=== PATIENT | female | born 1960 | race Caucasian/White ===

== ENCOUNTER → 2018-08-12 | Outpatient (CLI) | payer OTHER ==
[~2018-08-12] VITALS: Ht 157.5 cm; Wt 97.1 kg
[~2018-08-12] MED LIST: REGADENOSON 0.4 MG/5 ML SYR (LEXISCAN) IV ONE
[2018-08-12] MEDS: CATHETER FLUSH 10 ML SYR IV PRN ×2 (11:03→12:39)
[2018-08-12 12:37] VITALS: BP 137/81
--- NOTE | 2018-08-12 17:34 | STRESS TEST ---
DATE OF SERVICE: 08/12/2018 RESTING AND POST REGADENOSON TECHNETIUM-99M TETROFOSMIN SPECT CT IMAGING ORDERING PHYSICIAN: MART Vallejo PRIMARY PHYSICIAN: Dr. Wharton. CLINICAL DIAGNOSIS: Chest discomfort. Baseline images were carried out after injection of 10.96 mCi of technetium-99m Tetrofosmin. This was followed by 0.4 mg regadenoson and 28.4 mCi technetium-99m Tetrofosmin for stress imaging. The electrocardiogram showed sinus rhythm at baseline. It did not change significantly with the regadenoson infusion. She had some generalized discomfort and chest discomfort following regadenoson infusion, which resolved in a few minutes. The electrocardiogram did not change. Review of images at rest and following stress does not indicate any distinct perfusion defects consistent with significant myocardial ischemia or infarction. Some degree of breast attenuation is seen both at rest and following regadenoson infusion. Gated images show normal global left ventricular systolic function with normal regional wall motion. Left ventricular ejection fraction is calculated to be 72%. Left ventricular end diastolic volume is 41 mL. TID is absent (1.08). CONCLUSIONS: 1. No evidence of significant myocardial ischemia or infarction was seen. 2. Normal regional wall motion. 3. Normal global left ventricular systolic function with a calculated ejection fraction of 72%. Job ID: [id number] DocumentID: [id number] Dictated Date: 08/12/2018 14:33:23 [employer] Date: 08/12/2018 17:34:06 Dictated By: MALOU CAPPS MD, MA, FACP, FACC,
== END ==
LOC: CARD 10:11
PROVIDERS: ATTEND Nurse Practitioner Family
DX: R07.9 Chest pain, unspecified (principal); R06.09 Other forms of dyspnea; I10 Essential (primary) hypertension; E78.2 Mixed hyperlipidemia; J44.9 Chronic obstructive pulmonary disease, unspecified
CPT/HCPCS: 78452; 93017

== ENCOUNTER → 2018-11-03 | Outpatient (CLI) | payer OTHER ==
[2018-11-03 15:53] LABS: ABG BASE EXCESS 0.6 MMOL/L (-2.5-2.5); ABG OXYGEN SATURATION 97 % (94-100); ABG PCO2 39 MMHG (35-45); ABG PH 7.42 (7.37-7.43); ABG PO2 77 MMHG (79-93); ABG TCO2 26.1 MMOL/L (21.0-31.0)
[2018-11-03 15:54] LABS: ALLENS TEST YES-POS; INSPIRED O2 RA; PATIENT TEMP 36.1; VENTILATOR NO
== END ==
LOC: LAB 14:37
PROVIDERS: ATTEND Nurse Practitioner Family
DX: J30.9 Allergic rhinitis, unspecified (principal); G47.10 Hypersomnia, unspecified; G47.50 Parasomnia, unspecified
CPT/HCPCS: 36600; 82805

== ENCOUNTER → 2019-01-05 | Outpatient (CLI) | payer OTHER ==
[~2019-01-05] MED LIST changes: +CATHETER FLUSH 10 ML SYR IV PRN; +HOLD METFORMIN - RECEIVED CONTRAST 20 ML VIAL IV SCH; +IOHEXOL 350 MG/ML 100 ML (OMNIPAQUE 350) VIAL IV ONE; +NS 100 ML (IVPB) BAG IV ONE; -REGADENOSON 0.4 MG/5 ML SYR (LEXISCAN) IV ONE; +RT-ALBUTEROL SULF 2.5 MG/3 ML PRE-MIX VIAL INH ONE
[2019-01-05 14:33] LABS: BUN/CREATININE RATIO 11; CREATININE SERUM 0.85 MG/DL (0.60-1.30); GFR ESTIMATED > 60
--- NOTE | 2019-01-05 17:34 | Diagnostic Imaging Report ---
PROCEDURE: CT chest with contrast only. TECHNIQUE: Multiple contiguous axial images were obtained through the chest after administration of intravenous contrast. Auto Exposure Controls were utilized during the CT exam to meet ALARA standards for radiation dose reduction. INDICATION: Chest pain, shortness of breath. COMPARISON: None. FINDINGS: The heart and mediastinal structures appear grossly normal. There is coronary artery disease, primarily involving the LAD branches. There is no pericardial effusion. The aorta and pulmonary arteries appear grossly normal. There is no lymphadenopathy. Central airways are patent. The lungs are clear. No mass, nodule, or infiltrate are seen. There is no pleural effusion. There is some chronic bronchiectasis in the right middle lobe and left anterior lung base. Osseous structures and visualized upper abdominal solid organs are unremarkable. Three low-density liver lesions are present, too small to classify. These are likely benign cysts. Consider ultrasound correlation. IMPRESSION: 1. Coronary artery disease. 2. No suspicious infiltrate, nodule, or mass. 3. Low-density liver lesions, likely benign. Ultrasound correlation recommended. 4. Not mentioned above, nonobstructive left renal calculi. Dictated by: Dictated on workstation # [id number]
== END ==
LOC: RT 13:54
PROVIDERS: ATTEND Nurse Practitioner Family
DX: J30.9 Allergic rhinitis, unspecified (principal); G47.10 Hypersomnia, unspecified; G47.50 Parasomnia, unspecified
CPT/HCPCS: 36415; 71260; 82565; 84520; 94060; 94726; 94729

== ENCOUNTER 2019-01-09 20:05 | Outpatient (CLI) | payer OTHER | END 2019-01-10 07:09 | disposition home or self-care (01) | LOC: SLEEP 20:05 | PROVIDERS: ATTEND Nurse Practitioner Family | DX: G47.50 Parasomnia, unspecified (principal); G47.36 Sleep related hypoventilation in conditions classified elsewhere; G47.10 Hypersomnia, unspecified; J30.9 Allergic rhinitis, unspecified; G47.61 Periodic limb movement disorder | CPT/HCPCS: 95810 ==

== ENCOUNTER → 2019-01-27 | Outpatient (CLI) | payer OTHER ==
--- NOTE | 2019-01-27 10:55 | Diagnostic Imaging Report ---
PROCEDURE: US Hepatic (Liver). TECHNIQUE: Multiple real-time grayscale images were obtained over the right upper quadrant in various projections. INDICATION: Liver lesion seen on CT. FINDINGS: Liver is normal in size. There is increased echogenicity of liver compatible with fatty infiltration. There is a cyst in left lobe measuring 1.4 x 1.5 cm. There is no biliary ductal dilatation. Common bile duct measures 5.8 mm. There is no cholelithiasis, gallbladder wall thickening or pericholecystic fluid. The pancreas is largely obscured by bowel gas. Right kidney is normal. There is no ascites. IMPRESSION: Small benign-appearing hepatic cysts as well as some fatty infiltration of liver otherwise unremarkable. Dictated by: Dictated on workstation # [id number]
== END ==
LOC: RAD 08:34
PROVIDERS: ATTEND Registered Nurse
DX: K76.89 Other specified diseases of liver (principal); K76.0 Fatty (change of) liver, not elsewhere classified
CPT/HCPCS: 76705